=== PATIENT | female | born 1995 | race Hispanic/Latino ===

== ENCOUNTER → 2025-03-31 | Day surgery (SDC) | payer OTHER ==
[~2025-03-31] MED LIST: ATIVAN1 MG PO; FENTANYL CITRATE/PF 100MCG/2 ML INJ ONE; GLYCOPYRROLATE INJ 0.2 MG/ML VIAL ONE; HYDROCODONE/APAP 7.5MG-325MG 1 EA TAB ONE; IPRATROPIU0.2 MG/1 M INH; LIDOCAINE HCL 2% LOCAL INJ 5 ML SDV VIAL INJ ONE; MIDAZOLAM HCL 2 MG/2 ML VIAL ONE; NEOSTIGMINE 1 MG/ML 10ML VIAL ONE; ONDANSETRON HCL INJ 2MG/ML 2ML 2 MG/ML VIAL ONE; PROGESTERONE100 MG PO; PROPOFOL IV EMULSION 10 MG/ML 20 ML VIAL ONE; ROCURONIUM BROMIDE 0 ML IV ONE; ROCURONIUM BROMIDE 1 ML IV ONE; SEVOFLURANE INHAL SOLN 250 ML PEN BTL ONE; SUGAMMADEX SODIUM 200 MG/2 ML VIAL IV ONE; VENTOLIN HFA18 GM INH
[2025-03-31] MEDS: LACTATED RINGER'S 1,000 ML ONE (07:05)
[2025-03-31 08:37] LABS: INR 0.91
[2025-03-31 09:18] VITALS: TEMP 97.8
[2025-03-31] MEDS: FENTANYL CITRATE/PF 100MCG/2 ML INJ IV ONE ×3 (09:39→09:50)
[2025-03-31] MEDS: HYDROCODONE/APAP 7.5MG-325MG 1 EA TAB PO ONE (10:28)
[2025-03-31 10:30] VITALS: BP 112/73; PULSE 66; RESP 14; O2SAT 100
== END | disposition home or self-care (01) ==
LOC: OR 07:00
PROVIDERS: ATTEND Otolaryngology Otolaryngology/Facial Plastic Surgery
DX: J34.2 Deviated nasal septum (principal); J34.89 Other specified disorders of nose and nasal sinuses; R09.82 Postnasal drip; J45.909 Unspecified asthma, uncomplicated; F17.290 Nicotine dependence, other tobacco product, uncomplicated; Z88.0 Allergy status to penicillin; Z88.8 Allergy status to other drugs, medicaments and biological substances; Z79.899 Other long term (current) drug therapy
CPT/HCPCS: 30520; 36415; 81025; 85610; 85730; 88304; 88311; J2003; J2250; J2405; J2704; J3010; J7121; 88300; J2710